=== PATIENT | male | born 1960 | race Caucasian/White ===

== ENCOUNTER 2023-10-11 07:37 | Outpatient (CLI) | payer MEDICAID | END 2023-10-11 23:59 | disposition home or self-care (01) | LOC: MRI 07:37 | PROVIDERS: ATTEND Chiropractor | DX: M47.817 Spondylosis without myelopathy or radiculopathy, lumbosacral region (principal); M48.07 Spinal stenosis, lumbosacral region; M51.27 Other intervertebral disc displacement, lumbosacral region; M99.03 Segmental and somatic dysfunction of lumbar region; M62.830 Muscle spasm of back; M25.559 Pain in unspecified hip | CPT/HCPCS: 72148 ==

== ENCOUNTER 2024-02-27 14:28 | Emergency (ER) | payer MEDICAID ==
[~2024-02-27] VITALS: Ht 177.8 cm; Wt 65.9 kg
[2024-02-27 15:22] LABS: BASOPHILS % (AUTO) 0.3 % (0-1); EOSINOPHILS % (AUTO) 0 % (0-6); HEMATOCRIT 45.4 % (42.0-52.0); HEMOGLOBIN 14.8 g/dl (14.0-17.9); LYMPHOCYTES # (AUTO) 0.7 X10'3 (1.1-4.8); LYMPHOCYTES % (AUTO) 6.9 % (21-51); MEAN CORPUSCULAR HEMOGLOBIN 29.9 PG (27.0-31.0); MEAN CORPUSCULAR HGB CONC 32.7 g/dL (33.0-36.5); MEAN CORPUSCULAR VOLUME 91.5 FL (78-98); MEAN PLATELET VOLUME 8.7 FL (7.4-10.4); MONOCYTES # (AUTO) 1.2 X10'3 (0-0.9); MONOCYTES % (AUTO) 11.4 % (2-12); NEUTROPHILS # (AUTO) 8.3 X10'3 (1.8-7.7); NEUTROPHILS % (AUTO) 81.4 % (42-75); PLATELET COUNT 181 X10'3 (140-440); RED BLOOD COUNT 4.96 X10'6 (4.70-6.10); RED CELL DISTRIBUTION WIDTH 14.2 % (11.5-14.5); WHITE BLOOD COUNT 10.1 X10'3 (4.5-11.0)
[2024-02-27 15:41] LABS: ALANINE AMINOTRANSFERASE 73 U/L (12-78); ALBUMIN 3.9 G/DL (3.4-5.0); ALKALINE PHOSPHATASE 45 IU/L (46-116); ANION GAP 9 (8-16); ASPARTATE AMINO TRANSFERASE 47 U/L (10-37); BILIRUBIN,TOTAL 0.5 MG/DL (0.1-1.0); BLOOD UREA NITROGEN 16 MG/DL (7-18); BUN/CREATININE RATIO 14.8 (10.0-20.0); CALCIUM 9.3 MG/DL (8.5-10.1); CHLORIDE 101 MMOL/L (99-107); CREATININE 1.08 MG/DL (0.60-1.10); GLUCOSE 117 MG/DL (70-104); SODIUM 139 MMOL/L (135-145); TOTAL CARBON DIOXIDE 28.7 MMOL/L (24-32); TOTAL PROTEIN 7.7 G/DL (6.4-8.2); eCRCL 64 ML/MIN; eGFR 69 ML/MIN
[2024-02-27] MEDS: normal saline 1000ml 1,000 ML IV ONE (20:48)
[2024-02-27] MEDS: ketorolac trometh 15mg/ml vial 15 MG/ML ML IV ONE (21:03)
[2024-02-27 21:53] LABS: STREP A SCREEN NEGATIVE (Neg)
[2024-02-27] MEDS ORDERED: NIRM1TAB7 PO (22:05)
[2024-02-27] MEDS ORDERED: LIDO15SO9 PO (22:05)
[2024-02-27] MEDS: acetaminophen 1,000mg/100ml IV 100 ML IV ONE (22:12)
[2024-02-27 22:14] VITALS: BP 100/80; PULSE 78; RESP 15; TEMP 97.2; O2SAT 100
== END 2024-02-27 23:10 | disposition home or self-care (01) ==
LOC: ER 14:28
DX: U07.1 COVID-19 (principal); J02.8 Acute pharyngitis due to other specified organisms
CPT/HCPCS: 36415; 71045; 80053; 85025; 87081; 87811; 87880; 96361; 96374; 96375; 99285; J0131; J1885; J7030